=== PATIENT | female | born 1985 | race African-American/Black ===

== ENCOUNTER 2016-08-23 01:09 | Emergency (ER) | payer OTHER ==
[~2016-08-23] VITALS: Ht 175.3 cm; Wt 81.6 kg
[~2016-08-23 01:09] MED LIST: APIX2.5T PO; APIX5TAB PO; METO50TA10 PO; PHEN37.53 PO; RIVA10TA PO; SOTA80TA48 PO; VENTOLIN HFA18 GM IH; WARF-78 PO
[2016-08-23 01:15] VITALS: BP 108/72
[2016-08-23 01:45] LABS: BASO % 1 % (0-3); EOS % 2 % (0-3); HEMATOCRIT 31.9 % (36.0-47.0); LYMPH # 2.1 x10^3/uL (1.0-4.8); LYMPH % 32 % (24-48); MEAN CORPUSCULAR HEMOGLOBIN 25 pg (25-35); MEAN CORPUSCULAR HGB CONC 31 g/dL (31-37); MEAN CORPUSCULAR VOLUME 80 fL (79-100); MONO % 8 % (0-9); NEUT % 57 % (31-73); PLATELET COUNT 323 x10^3/uL (140-400); RED BLOOD COUNT 3.98 x10^6/uL (3.50-5.40); RED CELL DISTRIBUTION WIDTH 15.2 % (11.5-14.5); WHITE BLOOD COUNT 6.5 x10^3/uL (4.0-11.0)
[2016-08-23 01:59] LABS: CALCIUM 8.9 mg/dL (8.5-10.1); CREATININE 0.8 mg/dL (0.6-1.0); GFR 101.9
[2016-08-23] MEDS ORDERED: ASPIRIN CHEWABLE 81 MG TABLET. PO ONE (02:00)
--- NOTE | 2016-08-23 02:22 | PHYS DOC ---
Past Medical History Past Medical History: Asthma, DVT, Other Additional Past Medical Histor: Factor V Past Surgical History: Pacemaker, Tubal ligation Additional Past Surgical Histo: PACEMAKER W DIFIBRATOR Alcohol Use: None Drug Use: None Adult General Chief Complaint Chief Complaint: CHEST PAIN HPI HPI 31-year-old female presenting to the ER today with chest pain. Her chest pain is been present for more than a week. It is a sharp pain that is associated with lightheadedness when she stands up. She denies fevers chills or cough. She denies shortness of breath or abdominal pain. The pain is nonradiating. No alleviating or exacerbating factors present. She has a history of cardiac arrest and is status post an ICD placement. Review of systems is negative for shortness of breath abdominal pain nausea vomiting or diaphoresis. All other review of systems is negative unless otherwise noted in history of present illness. Pertinent physical exam findings showed soft nontender abdomen. Lungs were clear to auscultation bilaterally. Palpable pulse in all extremities. ED course: 31-year-old female presenting with chest pain. EKG unremarkable. Blood work obtained which was unremarkable including a negative d-dimer. Aspirin given. Patient feeling better on reexamination. heart score 1. wells score 1.5. The patient was then discharged home in stable condition to follow up with their primary care physician over the next 2-3 days. They were to return if their symptoms worsened or if they were concerned for any reason. Face -to-face discharge instructions and return precautions were given. Patient's questions were answered to their satisfaction. Patient is comfortable plan. Review of Systems Review of Systems SEE ABOVE. Current Medications Current Medications Current Medications Medications (Trade) Dose Ordered Sig/[facility] Start Time Stop Time Status Last Admin Dose Admin Aspirin (Children'S Aspirin) 324 mg 1X ONCE 08/23/16 02:00 08/23/16 02:01 MT Allergies Allergies Allergies Coded Allergies Type Severity Reaction Last Updated Verified No Known Drug Allergies 10/24/15 No Physical Exam Physical Exam Constitutional: Well developed, well nourished, no acute distress, non-toxic appearance. [] HENT: Normocephalic, atraumatic, bilateral external ears normal, oropharynx moist, no oral exudates, nose normal. [] Eyes: PERRLA, EOMI, conjunctiva normal, no discharge. [] Neck: Normal range of motion, no tenderness, supple, no stridor. Cardiovascular:Heart rate regular rhythm, no murmur Lungs & Thorax: Bilateral breath sounds clear to auscultation [] Abdomen: Bowel sounds normal, soft, no tenderness, no masses, no pulsatile masses. [] Skin: Warm, dry, no erythema, no rash. Back: No tenderness, no CVA tenderness. [] Extremities: No tenderness, no cyanosis, no clubbing, ROM intact, no edema. [] Neurologic: Alert and oriented X 3, normal motor function, normal sensory function, no focal deficits noted. [] Psychologic: Affect normal, judgement normal, mood normal. [] Current Patient Data Vital Signs Vital Signs Date Time Temp Pulse Resp B/P (MAP) Pulse Ox O2 Delivery O2 Flow Rate FiO2 08/23/16 01:15 98.4 83 20 108/72 (84) 100 Room Air 98.4 Lab Values Laboratory Tests Test 08/23/16 01:39 White Blood Count 6.5 x10^3/uL (4.0-11.0) Red Blood Count 3.98 x10^6/uL (3.50-5.40) Hemoglobin 10.0 g/dL (12.0-15.5) L Hematocrit 31.9 % (36.0-47.0) L Mean Corpuscular Volume 80 fL (79-100) Mean Corpuscular Hemoglobin 25 pg (25-35) Mean Corpuscular Hemoglobin Concent 31 g/dL (31-37) Red Cell Distribution Width 15.2 % (11.5-14.5) H Platelet Count 323 x10^3/uL (140-400) Neutrophils (%) (Auto) 57 % (31-73) Lymphocytes (%) (Auto) 32 % (24-48) Monocytes (%) (Auto) 8 % (0-9) Eosinophils (%) (Auto) 2 % (0-3) Basophils (%) (Auto) 1 % (0-3) Neutrophils # (Auto) 3.7 x10^3uL (1.8-7.7) Lymphocytes # (Auto) 2.1 x10^3/uL (1.0-4.8) Monocytes # (Auto) 0.5 x10^3/uL (0.0-1.1) Eosinophils # (Auto) 0.1 x10^3/uL (0.0-0.7) Basophils # (Auto) 0.0 x10^3/uL (0.0-0.2) D-Dimer (Yaritza) 0.48 ug/mlFEU (0.00-0.50) Sodium Level 141 mmol/L (136-145) Potassium Level 4.0 mmol/L (3.5-5.1) Chloride Level 104 mmol/L (98-107) Carbon Dioxide Level 31 mmol/L (21-32) Anion Gap 6 (6-14) Blood Urea Nitrogen 7 mg/dL (7-20) Creatinine 0.8 mg/dL (0.6-1.0) Estimated GFR (Cockcroft-Gault) 101.9 Glucose Level 89 mg/dL (70-99) Calcium Level 8.9 mg/dL (8.5-10.1) Troponin I Quantitative < 0.017 ng/mL (0.000-0.055) Lipase 104 U/L (73-393) Laboratory Tests 08/23/16 01:39 Laboratory Tests 08/23/16 01:39 EKG EKG EKG shows sinus rhythm with regular rate. Normal intervals. Normal axis. ST segments are congruent. Not suggestive of ACS. Reviewed by myself.[] Radiology/Procedures Radiology/Procedures []Chest x-ray reviewed by myself shows no obvious infiltrate or pneumothorax present. ICD noted. No obvious acute cardiopulmonary process present. Course & Med Decision Making Course & Med Decision Making Pertinent Labs and Imaging studies reviewed. (See chart for details) [] Dragon Disclaimer Dragon Disclaimer This electronic medical record was generated, in whole or in part, using a voice recognition dictation system. Departure Departure Impression: Primary Impression: Chest pain Disposition: 01 HOME, SELF-CARE Condition: STABLE Referrals: JANAE DE PAZ MD (PCP) Patient Instructions: Chest Pain (Nonspecific) Additional Instructions: Thank you for allowing us to participate in your care today. Followup with your primary care physician in 3 days if your symptoms do not improve. If you do not have a primary care provider you can ask for a list of our primary care providers. Return to the emergency department you have any new or concerning findings. This should be evaluated by the primary care physician and any necessary consulting services for continued management within a few days after discharge. Return to emergency room if you have any new or concerning symptoms including but not limited to fever, chills, nausea, vomiting, intractable pain, any new rashes, chest pain, shortness of air, uncontrolled bleeding, difficulty breathing, and/or vision loss. BERNARDO MORRIS MD Aug 23, 2016 02:22
--- NOTE | 2016-08-23 06:42 | EKG ---
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
--- NOTE | 2016-08-23 07:38 | RAD ---
Indication chest pain. A single view of the chest was obtained. Comparison is made to an examination 10/24/2015. Defibrillating and bipolar cardiac pacing device is noted. Heart size and pulmonary vessels are normal. The lungs are clear. There has not been a significant change compared to the previous exam. IMPRESSION: No acute or focal process. No significant change
== END 2016-08-23 02:39 | disposition home or self-care (01) ==
LOC: ER 01:09
DX: R07.9 Chest pain, unspecified (principal); J45.909 Unspecified asthma, uncomplicated; Z95.0 Presence of cardiac pacemaker; Z98.51 Tubal ligation status; Z86.718 Personal history of other venous thrombosis and embolism
CPT/HCPCS: 36415; 71010; 80048; 83690; 84484; 85027; 85379; 93005; 99285-25

== ENCOUNTER 2018-03-30 22:29 | Emergency (ER) | payer OTHER ==
[~2018-03-30 22:29] MED LIST changes: -METO50TA10 PO; +METO50TA29 PO
[2018-03-31 04:04] LABS: ALBUMIN 3.4 g/dL (3.4-5.0); ALBUMIN/GLOBULIN RATIO 0.9 (1.0-1.7); CALCIUM 8.9 mg/dL (8.5-10.1); CREATININE 0.8 mg/dL (0.6-1.0); GFR 101.2; POTASSIUM 3.9 mmol/L (3.5-5.1); TOTAL BILIRUBIN 0.2 mg/dL (0.2-1.0); TOTAL PROTEIN 7.4 g/dL (6.4-8.2)
[2018-03-31 04:05] LABS: HEMATOCRIT 34.4 % (36.0-47.0); HEMOGLOBIN 11.1 g/dL (12.0-15.5); LYMPH % 34 % (24-48); MEAN CORPUSCULAR HEMOGLOBIN 28 pg (25-35); MEAN CORPUSCULAR HGB CONC 32 g/dL (31-37); MEAN CORPUSCULAR VOLUME 86 fL (79-100); MONO % 8 % (0-9); NEUT % 55 % (31-73); PLATELET COUNT 244 x10^3/uL (140-400); RED BLOOD COUNT 4.02 x10^6/uL (3.50-5.40); RED CELL DISTRIBUTION WIDTH 13.2 % (11.5-14.5); WHITE BLOOD COUNT 5.8 x10^3/uL (4.0-11.0)
[2018-03-31 04:06] LABS: BASO % 1 % (0-3); EOS # 0.1 x10^3/uL (0.0-0.7); EOS % 3 % (0-3); MONO # 0.5 x10^3/uL (0.0-1.1); NEUT # 3.2 x10^3uL (1.8-7.7)
--- NOTE | 2018-03-31 08:05 | RAD ---
Portable chest, 03/30/2018: HISTORY: Chest pain Comparison is made to a study from 08/23/2016. A left-sided transvenous pacemaker remains in place with 2 leads extending into the right heart. The heart size and pulmonary vascularity are normal. No pulmonary infiltrate is seen. There is no evidence of pleural fluid. IMPRESSION: No acute cardiopulmonary abnormality is detected. Electronically signed by: Jose Alberto Joseph MD (03/31/2018 8:00 AM) [facility]
--- NOTE | 2018-03-31 10:30 | EKG ---
[facility] [address] [place] [address] Test Date: 2018-03-30 Test Time: 22:36:15 Pat Name: DARNELL BANERJEE Department: Room: Gender: F Hr Assistant: : 1985 Requested By: SUNNY SULLIVAN Order Number: [id number] Reading MD: Oscar Newsome MD Measurements Intervals [place] Rate: 74 P: [place]: QRS: 62 QRSD: 64 T: 31 QT: 364 QTc: 404 Interpretive Statements SINUS RHYTHM Electronically Signed On 03-31-2018 12:31:17 STUDENT FINANCIAL AID MANAGER by Oscar Newsome MD
== END 2018-03-30 23:50 | disposition home or self-care (01) ==
LOC: ER 22:29
DX: R07.89 Other chest pain (principal)
CPT/HCPCS: 36415; 71045; 80053; 84484; 85025; 93005; 99284-25

== ENCOUNTER 2021-02-01 13:45 | Observation (INO) | payer OTHER ==
[~2021-02-01] VITALS: Ht 175.3 cm; Wt 105.0 kg
[~2021-02-01 13:45] MED LIST changes: +ACET325T21 PO; +AMOX1TAB10 PO; +DOCU-148 PO; +LACT1CAP19 PO; +METO-239 PO; -WARF-78 PO; +WARF5TAB2 PO
[2021-02-01] MEDS ORDERED: ASPIRIN CHEWABLE 81 MG TABLET. PO ONE (14:00)
[2021-02-01] MEDS ORDERED: NITROGLYCERIN SUBLINGUAL 0.4 MG BOTTLE OF 25. SL PRN (14:00)
--- NOTE | 2021-02-01 14:23 | PHYS DOC ---
Past Medical History Past Medical History: A-Fib, Asthma, DVT, Other Additional Past Medical Histor: Factor V,CODED 29 TIMES (DUNCAN RICE APRN) Past Surgical History: Pacemaker, Tubal ligation, Other Additional Past Surgical Histo: PPM/AICD (DUNCAN RICE APRN) Smoking Status: Never Smoker Alcohol Use: Occasionally Drug Use: None (DUNCAN RICE APRN) General Adult EDM: Chief Complaint: CHEST PAIN HPI: HPI: Patient is a 35-year-old female who presents to the emergency department for midsternal chest pain that started 30 minutes prior to arrival. She describes the chest pain as a pressure and rates it 6 out of 10. She reports that the chest pain is relieved with rest and worse with movement. The pain does not radiate. Along with her chest pain she is experiencing lightheadedness. She is also reporting a generalized headache x1 week. She reports this is the worst headache she has ever had in her life and does not have a history of headaches. She denies any injuries, thunderclap headache, sore throat, nasal congestion or drainage, fevers, neck stiffness, cough, nausea, vomiting, shortness of breath. Patient has a history of DVT, factor V, defibrillator due to V. fib history and cardiac arrest. (DUNCAN RICE APRN) Review of Systems: Review of Systems: 14 body systems of the review of systems have been reviewed. See HPI for pertinent positive and negative responses, otherwise all other systems are negative, nonpertinent or noncontributory (DUNCAN RICE APRN) Heart Score: C/O Chest Pain: Yes HEART Score for Chest Pain: HEART Score for Chest Pain Response (Comments) Value History Slighlty/Non-Suspicious 0 ECG Normal 0 Age < 45 0 Risk Factors 1 or 2 Risk Factors 1 Troponin < Normal Limit 0 Total 1 Risk Factors: Risk Factors: DM, Current or recent (<one month) smoker, HTN, HLP, family history of CAD, obesity. Risk Scores: Score 0 - 3: 2.5% MACE over next 6 weeks - Discharge Home Score 4 - 6: 20.3% MACE over next 6 weeks - Admit for Clinical Observation Score 7 - 10: 72.7% MACE over next 6 weeks - Early Invasive Strategies (DUNCAN RICE APRN) Current Medications: Current Medications Medications (Trade) Dose Ordered Sig/Keri Start Time Stop Time Status Last Admin Dose Admin Aspirin (Aspirin Chewable) 324 mg 1X ONCE 02/01/21 14:00 02/01/21 14:01 DC 02/01/21 14:12 324 MG Nitroglycerin (Nitrostat) 0.4 mg PRN Q5MIN PRN 02/01/21 14:00 02/02/21 13:59 (DUNCAN RICE APRN) Allergies: Allergies: Allergies Coded Allergies Type Severity Reaction Last Updated Verified No Known Drug Allergies 10/24/15 No (DUNCAN RICE APRN) Physical Exam: PE: Constitutional: Well developed, well nourished, no acute distress, non-toxic appearance. [] HENT: Normocephalic, atraumatic, bilateral external ears normal, oropharynx moist, no oral exudates, nose normal. [] Eyes: PERRL, EOMI, conjunctiva normal, no discharge. [] Neck: Normal range of motion, no tenderness, supple, no nuchal rigidity, no stridor. [] Cardiovascular:Heart rate regular rhythm, no murmur [] Lungs & Thorax: Bilateral breath sounds clear to auscultation [] Abdomen: Bowel sounds normal, soft, no tenderness, no masses, no pulsatile masses. [] Skin: Warm, dry, no erythema, no rash. [] Back: Normal range of motion Extremities: No tenderness, no cyanosis, no clubbing, ROM intact, no edema. [] Neurologic: Alert and oriented X 3, normal motor function, normal sensory function, no focal deficits noted. [] Psychologic: Affect normal, judgement normal, mood normal. [] (DUNCAN RICE APRN) Current Patient Data: Labs: Laboratory Tests Test 02/01/21 15:00 02/01/21 15:44 Urine Collection Type Unknown Urine Color [place] Urine Clarity Cloudy Urine pH 7.5 Urine Specific [place] 1.015 Urine Protein Negative mg/dL Urine Glucose (UA) Negative mg/dL Urine Ketones (Stick) Negative mg/dL Urine Blood Large Urine Nitrite Negative Urine Bilirubin Negative Urine Urobilinogen Dipstick 1.0 mg/dL Urine Leukocyte Esterase Small Urine RBC Tntc /HPF Urine WBC 1-4 /HPF Urine Squamous Epithelial Cells Mod /LPF Urine Bacteria 0 /HPF Urine Test Negative White Blood Count 7.0 x10^3/uL Red Blood Count 4.32 x10^6/uL Hemoglobin 11.4 g/dL Hematocrit 36.1 % Mean Corpuscular Volume 84 fL Mean Corpuscular Hemoglobin 26 pg Mean Corpuscular Hemoglobin Concent 32 g/dL Red Cell Distribution Width 13.6 % Platelet Count 300 x10^3/uL Neutrophils (%) (Auto) 65 % Lymphocytes (%) (Auto) 26 % Monocytes (%) (Auto) 7 % Eosinophils (%) (Auto) 2 % Basophils (%) (Auto) 0 % Neutrophils # (Auto) 4.5 x10^3/uL Lymphocytes # (Auto) 1.8 x10^3/uL Monocytes # (Auto) 0.5 x10^3/uL Eosinophils # (Auto) 0.1 x10^3/uL Basophils # (Auto) 0.0 x10^3/uL Sodium Level 142 mmol/L Potassium Level 3.6 mmol/L Chloride Level 102 mmol/L Carbon Dioxide Level 29 mmol/L Anion Gap 11 Blood Urea Nitrogen 10 mg/dL Creatinine 0.7 mg/dL Estimated GFR (Cockcroft-Gault) 115.9 BUN/Creatinine Ratio 14 Glucose Level 106 mg/dL Calcium Level 8.5 mg/dL Total Bilirubin 0.2 mg/dL Aspartate Amino Transf (AST/SGOT) 14 U/L Alanine Aminotransferase (ALT/SGPT) 17 U/L Alkaline Phosphatase 93 U/L Troponin I High Sensitivity 5 ng/L Total Protein 7.6 g/dL Albumin 3.3 g/dL Albumin/Globulin Ratio 0.8 Current Medications Medications (Trade) Dose Ordered Sig/Keri Route PRN Reason Start Time Stop Time Status Last Admin Dose Admin Aspirin (Aspirin Chewable) 324 mg 1X ONCE PO 02/01/21 14:00 02/01/21 14:01 DC 02/01/21 14:12 Nitroglycerin (Nitrostat) 0.4 mg PRN Q5MIN PRN SL CP RATING > 03/2602/01/21 14:00 02/02/21 13:59 Fentanyl Citrate (Fentanyl 2ml Vial) 50 mcg 1X ONCE IVP 02/01/21 14:30 02/01/21 14:31 DC 02/01/21 15:56 Vital Signs: Vital Signs Date Time Temp Pulse Resp B/P (MAP) Pulse Ox O2 Delivery O2 Flow Rate FiO2 02/01/21 13:48 98.5 89 19 142/69 (93) 100 Room Air 98.5 (DUNCAN RICE APRN) EKG: EKG: [] EKG performed by ER staff at 1351 shows sinus rhythm with a heart rate of 89, QTc 417, no STEMI read by Dr. Trejo at 1437. (DUNCAN RICE APRN) Radiology/Procedures: Radiology/Procedures: []PROCEDURE: CT HEAD WO CONTRAST EXAM: Head CT without contrast. HISTORY: Headache. TECHNIQUE: Computed tomographic images of the head were obtained without intravenous contrast. COMPARISON: 07/22/2020. FINDINGS: There is no acute or subacute extra-axial or intraparenchymal hemorrhage. There is no mass effect or midline shift. There is no hydrocephalus. The alvarez-white matter differentiation pattern is intact. There are incidental bilateral lizett bullosa. The visualized orbits are unremarkable. The mastoid air cells are clear. 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 There is prominent adenoid soft tissue, likely reactive or due to hypertrophy. IMPRESSION: No acute intracranial findings. Electronically signed by: Ela Hargrove MD (02/01/2021 3:01 PM) [id number] DICTATED and SIGNED BY: ELA HARGROVE MD DATE: 02/01/21 [id number] PROCEDURE: PORTABLE CHEST 1V XR CHEST 1V History: Chest pain Comparison: 07/22/2020 Technique: Portable AP radiograph of the chest. Findings: Left chest dual-chamber pacemaker-defibrillator in unchanged position. No airspace consolidation, pleural effusion or pneumothorax. Cardiomediastinal silhouette and pulmonary vasculature are within normal limits. Osseous structures and soft tissues are unremarkable. Impression: 1. No acute cardiopulmonary process. Electronically signed by: Steven Wang MD (02/01/2021 3:21 PM) [id number] DICTATED and SIGNED BY: STEVEN WANG MD DATE: 02/01/21 [id number] (DUNCAN RICE APRN) Course & Med Decision Making: Course & Med Decision Making Pertinent Labs and Imaging studies reviewed. (See chart for details) Patient presents to the emergency department for headache and chest pain. Work- up in the ER consisted of blood work, EKG and chest x-ray. Patient be treated with aspirin and sublingual nitroglycerin as well as pain medication. Patient is also reporting a generalized headache x1 week. She denies any thunderclap headache. She has no meningeal signs. Imaging of her head was performed she did state this is the worst headache she has ever had in her life. Work-up in the ER was unremarkable. Patient did not have elevation in troponin or D-dimer. Her chest x-ray was unremarkable. Her heart score is 1 however due to her history of factor V, DVTs, and V. fib arrest and defibrillator placement and the fact that the chest pain started 30 minutes prior to arrival, I think it is appropriate to admit the patient for cardiac consultation and serial troponins. I discussed patient's findings with her and treatment plan and she is agreeable at this time. I discussed patient's findings with Dr. Lofton who agreed to admit the patient under his services for chest pain. ER bridge orders placed. Care transferred [id number]. (DUNCAN RICE APRN) Jose Angelon Disclaimer: tSacey Disclaimer: This electronic medical record was generated, in whole or in part, using a voice recognition dictation system. (DUNCAN RICE APRN) Departure Departure Impression: Primary Impression: Chest pain Qualified Codes: R07.9 - Chest pain, unspecified Disposition: ADMITTED INPATIENT Admitting Physician: JULIANE (DUNCAN RICE APRN) Condition: STABLE Referrals: UNKNOWN PCP NAME (PCP) DUNCAN RICE APRN Feb 01, 2021 14:23 KEENA TREJO MD Feb 02, 2021 07:33
--- NOTE | 2021-02-01 15:03 | RAD ---
EXAM: Head CT without contrast. HISTORY: Headache. TECHNIQUE: Computed tomographic images of the head were obtained without intravenous contrast. COMPARISON: 07/22/2020. FINDINGS: There is no acute or subacute extra-axial or intraparenchymal hemorrhage. There is no mass effect or midline shift. There is no hydrocephalus. The alvarez-white matter differentiation pattern is intact. There are incidental bilateral lizett bullosa. The visualized orbits are unremarkable. The ma stoid air cells are clear. 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 There is p rominent adenoid soft tissue, likely reactive or due to hypertrophy. IMPRESSION: No acute intracranial findings. Electronically signed by: Ela Sandy MD (02/01/2021 3:01 PM) [id number]
[2021-02-01 15:10] LABS: BILIRUBIN,URINE NEGATIVE (NEG); CLARITY,URINE CLOUDY; NITRITE,URINE NEGATIVE (NEG); PH,URINE 7.5 (<5.0-8.0); PROTEIN,URINE NEGATIVE (NEG-TRACE)
--- NOTE | 2021-02-01 15:16 | EKG ---
[facility] [address] [place] [address] Test Date: 2021-02-01 Test Time: 13:51:31 Pat Name: DARNELL BANERJEE Department: Room: Gender: F Client Administrator: : 1985 Requested By: DUNCAN RICE Order Number: [id number] Reading MD: Ray Rosen Measurements Intervals [place] Rate: 89 P: 42 CA: 164 QRS: 51 QRSD: 66 T: 42 QT: 342 QTc: 417 Interpretive Statements SINUS RHYTHM NORMAL ECG RI6.01 Compared to ECG 07/22/2020 03:26:45 No significant changes Electronically Signed On 02-04-2021 9:20:21 PINKED EDGE SEWING MACHINE OPERATOR by Ray Rosen
[2021-02-01 15:23] LABS: BACTERIA,URINE 0 /HPF (0-FEW); COLOR,URINE PINK; RBC,URINE TNTC /HPF (0-2)
--- NOTE | 2021-02-01 15:24 | RAD ---
XR CHEST 1V History: Chest pain Comparison: 07/22/2020 Technique: Portable AP radiograph of the chest. Findings: Left chest dual-chamber pacemaker-defibrillator in unchanged position. No airspace consolidation, ple ural effusion or pneumothorax. Cardiomediastinal silhouette and pulmonary vasculature are within norm al limits. Osseous structures and soft tissues are unremarkable. Impression: 1. No acute cardiopulmonary process. Electronically signed by: Steven De León MD (02/01/2021 3:21 PM) [id number]
[2021-02-01 15:26] LABS: U PREG PATIENT NEGATIVE (NEG)
[2021-02-01 15:53] LABS: BASO % 0 % (0-3); EOS # 0.1 x10^3/uL (0.0-0.7); EOS % 2 % (0-3); HEMATOCRIT 36.1 % (36.0-47.0); HEMOGLOBIN 11.4 g/dL (12.0-15.5); LYMPH # 1.8 x10^3/uL (1.0-4.8); LYMPH % 26 % (24-48); MEAN CORPUSCULAR HEMOGLOBIN 26 pg (25-35); MEAN CORPUSCULAR HGB CONC 32 g/dL (31-37); MEAN CORPUSCULAR VOLUME 84 fL (79-100); MONO # 0.5 x10^3/uL (0.0-1.1); MONO % 7 % (0-9); NEUT # 4.5 x10^3/uL (1.8-7.7); NEUT % 65 % (31-73); PLATELET COUNT 300 x10^3/uL (140-400); RED BLOOD COUNT 4.32 x10^6/uL (3.50-5.40); RED CELL DISTRIBUTION WIDTH 13.6 % (11.5-14.5)
[2021-02-01] MEDS: fentaNYL PF VIAL 100 MCG/2 ML VIAL IVP ONE ×2 (15:54→15:56)
[2021-02-01 16:01] LABS: CALCIUM 8.5 mg/dL (8.5-10.1); CREATININE 0.7 mg/dL (0.6-1.0); GFR 115.9; POTASSIUM 3.6 mmol/L (3.5-5.1)
[2021-02-01 16:06] LABS: ALBUMIN 3.3 g/dL (3.4-5.0); ALBUMIN/GLOBULIN RATIO 0.8 (1.0-1.7); TOTAL BILIRUBIN 0.2 mg/dL (0.2-1.0); TOTAL PROTEIN 7.6 g/dL (6.4-8.2)
[2021-02-01] MEDS ORDERED: ACETAMINOPHEN 325 MG TABLET. PO PRN (18:00)
[2021-02-01] MEDS ORDERED: ELECTROLYTE (NON-ICU) PROTOCOL. MC PRN (18:00)
[2021-02-01] MEDS ORDERED: oxyCODONE IR 5 MG TABLET PO PRN (18:00)
[2021-02-01] MEDS ORDERED: CALCIUM CARBONATE 500 MG TAB.CHEW PO PRN (18:00)
[2021-02-01] MEDS ORDERED: ZOLPIDEM 5 MG TABLET. PO PRN (18:00)
[2021-02-01] MEDS ORDERED: ONDANSETRON PF 4 MG/2 ML VIAL. IVP PRN (18:00)
[2021-02-01] MEDS ORDERED: MORPHINE SULFATE 2 MG/ML INJ. IV PRN ×2 (18:00)
[2021-02-01] MEDS: APIXABAN 5 MG TABLET. PO SCH (22:11)
[2021-02-01] MEDS: SENNOSIDES/DOCUSATE 8.6/50MG TABLET. PO SCH (22:11)
[2021-02-01 23:00] VITALS: BP 120/77
--- NOTE | 2021-02-01 23:00 | NUR ---
The patient, DARNELL BANERJEE, 35 y/o, F admitted by LANIE MARIE MD, was given written information regarding hospital policies, unit procedures and contact persons. Valuables were checked and documented. Call light in reach, will continue to monitor pt status and safety. pmrn
[2021-02-02 02:34] VITALS: BP_SYST 135; BP_SYST 150; BP_DIAS 65; BP_DIAS 69
[2021-02-02 05:24] LABS: BASO % 0 % (0-3); EOS # 0.2 x10^3/uL (0.0-0.7); EOS % 3 % (0-3); HEMOGLOBIN 11.3 g/dL (12.0-15.5); LYMPH % 31 % (24-48); MEAN CORPUSCULAR HEMOGLOBIN 26 pg (25-35); MEAN CORPUSCULAR HGB CONC 31 g/dL (31-37); MEAN CORPUSCULAR VOLUME 84 fL (79-100); MONO # 0.4 x10^3/uL (0.0-1.1); MONO % 6 % (0-9); NEUT # 3.8 x10^3/uL (1.8-7.7); NEUT % 60 % (31-73); PLATELET COUNT 273 x10^3/uL (140-400); RED CELL DISTRIBUTION WIDTH 13.3 % (11.5-14.5); WHITE BLOOD COUNT 6.3 x10^3/uL (4.0-11.0)
[2021-02-02 05:49] LABS: ALBUMIN/GLOBULIN RATIO 0.8 (1.0-1.7); CALCIUM 8.2 mg/dL (8.5-10.1); CREATININE 0.7 mg/dL (0.6-1.0); GFR 115.9; POTASSIUM 3.7 mmol/L (3.5-5.1); TOTAL BILIRUBIN 0.2 mg/dL (0.2-1.0); TOTAL PROTEIN 6.6 g/dL (6.4-8.2)
[2021-02-02 07:00] VITALS: BP 135/73
--- NOTE | 2021-02-02 08:07 | RAD ---
Bilateral lower extremity venous duplex study 02/02/2021 6:53 AM Clinical History: Reason: c/o pain left thigh, hx of dvts, hx of factor V Technique: Using a combination of real time ultrasound imaging and color-flow and pulse Doppler imagi ng techniques along with graded compression and augmentation, duplex evaluation of the deep venous sy stem of the both lower extremities was performed. Multiple images were obtained. Findings: There is no sonographic evidence of deep venous thrombosis involving the visualized deep ve nous structures of either lower extremity. Impression: No evidence of deep venous thrombosis involving either lower extremity Electronically signed by: Stephon Sloan MD (02/02/2021 8:04 AM) [id number]
--- NOTE | 2021-02-02 08:20 | PDOC2 ---
ZAYRA NARAYANAN TOBACCO DIPPER 02/02/21 0820: CARDIAC CONSULT DATE OF CONSULT Date of Consult DATE: 02/02/21 TIME: 08:16 REASON FOR CONSULT Reason for Consult: Chest pain, Hx of Vfib arrest REFERRING PHYSICIAN Referring Physician: Rolly SOURCE Source: Chart review, Patient HISTORY OF PRESENT ILLNESS HISTORY OF PRESENT ILLNESS This is a pleasant 35 yo female admitted for complains of COOPER and chest pain. Her chest pain is sharp in the middle not associated with palpitations, n/v and no SOA. Reports that her CP start n ED but had throbbing gloabl COOPER with some shooting discomfort to her neck but no visula or auditory disturbances nor stroke symptoms. She does have hx of NICM which she recovered and also migraine. She follow with Dr. Longoria at [facility] and was recnelty checked 1-2 months ago. She is vaccinated for covid-19 and no fever or chills. PAST MEDICAL HISTORY Cardiovascular: CHF, HTN, Other (palpitations, V-fib arrest, NICM) PAST SURGICAL HISTORY Past Surgical History: Pacemaker (AICD) FAMILY HISTORY Family History: Hypertension CURRENT MEDICATIONS CURRENT MEDICATIONS Current Medications Medications (Trade) Dose Ordered Sig/Keri Route PRN Reason Start Time Stop Time Status Last Admin Dose Admin Aspirin (Aspirin Chewable) 324 mg 1X ONCE PO 02/01/21 14:00 02/01/21 14:01 DC 02/01/21 14:12 Fentanyl Citrate (Fentanyl 2ml Vial) 50 mcg 1X ONCE IVP 02/01/21 14:30 02/01/21 14:31 DC 02/01/21 15:56 Apixaban (Eliquis) 5 mg BID PO 02/01/21 21:00 02/01/21 22:11 Senna/Docusate Sodium (Senna Plus) 1 tab BID PO 02/01/21 21:00 02/01/21 22:11 ALLERGIES ALLERGIES: Coded Allergies: No Known Drug Allergies (Unverified , 10/24/15) ROS Review of System 14 point ROS evaluated with pertinent positives noted per HPI PHYSICAL EXAM General: Alert, Oriented X3, Cooperative, No acute distress HEENT: Atraumatic, Mucous membr. moist/pink Lungs: Clear to auscultation, Normal air movement Heart: Regular rate (SR), Normal S1, Normal S2, No murmurs Abdomen: Soft, No tenderness Extremities: No cyanosis, No edema Skin: No breakdown, No significant lesion Neuro: Normal speech, Sensation intact Psych/Mental Status: Mental status NL, Mood NL MUSCULOSKELETAL: Full range of motion without pain VITALS/I&O VITALS/I&O: Vital Signs Date Time Temp Pulse Resp B/P (MAP) Pulse Ox O2 Delivery O2 Flow Rate FiO2 02/02/21 02:34 97.9 74 16 135/65 (88) 98 Room Air 97.9 I & O 02/01/21 02/01/21 02/02/21 15:00 23:00 07:00 Output Total 300 ml Balance -300 ml LABS Lab: Laboratory Tests Test 02/01/21 15:00 02/01/21 15:44 02/02/21 05:00 Urine Collection Type Unknown Urine Color [place] Urine Clarity Cloudy Urine pH 7.5 (<5.0-8.0) Urine Specific [place] 1.015 (1.000-1.030) Urine Protein Negative mg/dL (NEG-TRACE) Urine Glucose (UA) Negative mg/dL (NEG) Urine Ketones (Stick) Negative mg/dL (NEG) Urine Blood Large (NEG) Urine Nitrite Negative (NEG) Urine Bilirubin Negative (NEG) Urine Urobilinogen Dipstick 1.0 mg/dL (0.2 mg/dL) Urine Leukocyte Esterase Small (NEG) Urine RBC Tntc /HPF (0-2) Urine WBC 1-4 /HPF (0-4) Urine Squamous Epithelial Cells Mod /LPF Urine Bacteria 0 /HPF (0-FEW) Urine Test Negative (NEG) White Blood Count 7.0 x10^3/uL (4.0-11.0) 6.3 x10^3/uL (4.0-11.0) Red Blood Count 4.32 x10^6/uL (3.50-5.40) 4.30 x10^6/uL (3.50-5.40) Hemoglobin 11.4 g/dL (12.0-15.5) L 11.3 g/dL (12.0-15.5) L Hematocrit 36.1 % (36.0-47.0) 36.0 % (36.0-47.0) Mean Corpuscular Volume 84 fL (79-100) 84 fL (79-100) Mean Corpuscular Hemoglobin 26 pg (25-35) 26 pg (25-35) Mean Corpuscular Hemoglobin Concent 32 g/dL (31-37) 31 g/dL (31-37) Red Cell Distribution Width 13.6 % (11.5-14.5) 13.3 % (11.5-14.5) Platelet Count 300 x10^3/uL (140-400) 273 x10^3/uL (140-400) Neutrophils (%) (Auto) 65 % (31-73) 60 % (31-73) Lymphocytes (%) (Auto) 26 % (24-48) 31 % (24-48) Monocytes (%) (Auto) 7 % (0-9) 6 % (0-9) Eosinophils (%) (Auto) 2 % (0-3) 3 % (0-3) Basophils (%) (Auto) 0 % (0-3) 0 % (0-3) Neutrophils # (Auto) 4.5 x10^3/uL (1.8-7.7) 3.8 x10^3/uL (1.8-7.7) Lymphocytes # (Auto) 1.8 x10^3/uL (1.0-4.8) 2.0 x10^3/uL (1.0-4.8) Monocytes # (Auto) 0.5 x10^3/uL (0.0-1.1) 0.4 x10^3/uL (0.0-1.1) Eosinophils # (Auto) 0.1 x10^3/uL (0.0-0.7) 0.2 x10^3/uL (0.0-0.7) Basophils # (Auto) 0.0 x10^3/uL (0.0-0.2) 0.0 x10^3/uL (0.0-0.2) D-Dimer (Yaritza) 0.36 ug/mlFEU (0.00-0.50) Sodium Level 142 mmol/L (136-145) 142 mmol/L (136-145) Potassium Level 3.6 mmol/L (3.5-5.1) 3.7 mmol/L (3.5-5.1) Chloride Level 102 mmol/L (98-107) 104 mmol/L (98-107) Carbon Dioxide Level 29 mmol/L (21-32) 28 mmol/L (21-32) Anion Gap 11 (6-14) 10 (6-14) Blood Urea Nitrogen 10 mg/dL (7-20) 9 mg/dL (7-20) Creatinine 0.7 mg/dL (0.6-1.0) 0.7 mg/dL (0.6-1.0) Estimated GFR (Cockcroft-Gault) 115.9 115.9 BUN/Creatinine Ratio 14 (6-20) 13 (6-20) Glucose Level 106 mg/dL (70-99) H 86 mg/dL (70-99) Calcium Level 8.5 mg/dL (8.5-10.1) 8.2 mg/dL (8.5-10.1) L Total Bilirubin 0.2 mg/dL (0.2-1.0) 0.2 mg/dL (0.2-1.0) Aspartate Amino Transferase (AST) 14 U/L (15-37) L 13 U/L (15-37) L Alanine Aminotransferase (ALT) 17 U/L (14-59) 17 U/L (14-59) Alkaline Phosphatase 93 U/L (46-116) 86 U/L (46-116) Troponin I High Sensitivity 5 ng/L (4-50) 4 ng/L (4-50) Total Protein 7.6 g/dL (6.4-8.2) 6.6 g/dL (6.4-8.2) Albumin 3.3 g/dL (3.4-5.0) L 3.0 g/dL (3.4-5.0) L Albumin/Globulin Ratio 0.8 (1.0-1.7) L 0.8 (1.0-1.7) L Laboratory Tests 02/01/21 15:44 02/02/21 05:00 Laboratory Tests 02/01/21 15:44 02/02/21 05:00 ECHOCARDIOGRAM ECHOCARDIOGRAM <Conclusion> The left ventricle is normal size. The left ventricular systolic function is normal and the ejection fraction is within normal range. The Ejection Fraction is 60-65%. There is borderline concentric left ventricular hypertrophy. There is no significant aortic valvular stenosis. Doppler and Color Flow revealed no significant aortic regurgitation. Doppler and Color Flow revealed no mitral valve regurgitation noted. Doppler and Color Flow revealed trace tricuspid regurgitation. The PA pressure was estimated at 27 mmHg. There is no evidence of significant pericardial effusion. DATE: 02/16/15 1700 HEART CATH HEART CATH Findings: Coronaries: LM normal, LAD normal, Cx normal, RCA codominant and normal Ventriculogram: mildly dilated and hypokinetic. LV EF 30%, LVEDP 23 mmHg IMPRESSION Nonischemic cardiomyopathy S/P arrest probably secondary to dysrhythmias from the diet pills. At this time I cannot differentiate the reversible from the irreversible myocardial damage only time will tell. Await to see the neurological progression Pt taken back to CCU in stable hemodynamic condition DATE: 03/15/15 1714 ASSESSMENT/PLAN ASSESSMENT/PLAN 1. Atypical Chest pain trop nml no acute EKG changes. Noncardiac, possibly GI 2. of NICM: recovered per review 3. Hx of factor V leiden Def 4. COOPER with hx of Hx of Migraine per PCP 5. Hx of LLE DVT during 6. Hx of Vfib arrest remote 7. AICD in situ: medtronic. SR Recommendations 1. Trops nml no acute EKG changes. TTE today 2. Continue BB 3. Follow up with Dr. Swati ledezma DC today. MENDOZA PEDROZA MD 02/02/21 1304: CARDIAC CONSULT ASSESSMENT/PLAN ASSESSMENT/PLAN Patient seen and examined. Agree with BRIGHT CUTTER's assessment and plan. Chest pain with atypical features and currently resolved. Myocardial infarction has been ruled out. 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
[2021-02-02 08:59] LABS: CHOLESTEROL/HDL RATIO 3.3
[2021-02-02] MEDS ORDERED: METOPROLOL SUCC 24HR ER 25 MG TAB.ER.24H. PO SCH (09:00)
[2021-02-02] MEDS: APIXABAN 5 MG TABLET. PO SCH (09:01)
[2021-02-02] MEDS: SENNOSIDES/DOCUSATE 8.6/50MG TABLET. PO SCH (09:01)
[2021-02-02 10:47] VITALS: BP 126/67
--- NOTE | 2021-02-02 12:49 | HP ---
DATE OF SERVICE: 02/02/2021 ADMIT DATE: 02/01/2021 CHIEF COMPLAINT: Chest pain. HISTORY OF PRESENT ILLNESS: The patient is a pleasant DICTATION ENDS HERE DUKE/PAOLA DR: DUKE/petros TID: [id number]
--- NOTE | 2021-02-02 13:32 | SSS ---
DATE OF SERVICE: 02/02/2021 ADMIT DATE: 02/01/2021 CHIEF COMPLAINT: Chest pain. HISTORY OF PRESENT ILLNESS: The patient is a pleasant 35-year-old female with history of AFib and history of code blue and a permanent pacemaker and factor V Leiden mutation with chronic AFib. Basically, she presented last night with chest pain. We admitted overnight for observation. This morning, her labs are all still looking great. She wants to go home. We plan to discharge to home. PAST MEDICAL HISTORY: AFib, V-fib, cardiac arrest, code blue, permanent pacemaker, asthma, DVT, factor V Leiden mutation, tubal ligation. ALLERGIES: None. FAMILY HISTORY: Diabetes. SOCIAL HISTORY: She does not drink, smoke or take drugs. 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 MEDICATIONS: Reviewed, please refer to the MRAD. REVIEW OF SYSTEMS: GENERAL: No history of weight change, weakness or fevers. SKIN: No bruising, hair changes or rashes. EYES: No blurred, double or loss of vision. NOSE AND THROAT: No history of nosebleeds, hoarseness or sore throat. HEART: No history of palpitations, chest pain or shortness of breath on exertion. LUNGS: Denies cough, hemoptysis, wheezing or shortness of breath. GASTROINTESTINAL: Denies changes in appetite, nausea, vomiting, diarrhea or constipation. GENITOURINARY: No history of frequency, urgency, hesitancy or nocturia. NEUROLOGIC: Denies history of numbness, tingling, tremor or weakness. PSYCHIATRIC: No history of panic, anxiety or depression. ENDOCRINE: No history of heat or cold intolerance, polyuria or polydipsia. EXTREMITIES: Denies muscle weakness, joint pain, pain on walking or stiffness. PHYSICAL EXAMINATION: VITALS: Within normal limits and are stable. GENERAL: No apparent distress. Alert and oriented. HEENT: Normal cephalic atraumatic, external auditory canals are patent. Eyes: Extraocular muscles are intact, pupils are equally round and reactive to light and accommodation. MUSCULOSKELETAL: Well developed, well nourished, good range of motion. ENDOCRINE: No thyromegaly was palpated. LYMPHATICS: No cervical chain or axillary nodes were noted. HEMATOPOIETIC: No bruising. NECK: Supple, no JVD, no thyromegaly was noted. LUNGS: Clear to auscultation in all lung pal without rhonchi or wheezing. HEART: RRR, S1, S2 present. Peripheral pulses intact, no obvious murmurs were noted. ABDOMEN: Soft, nontender. Positive bowel sounds no organomegaly, normal bowel sounds. EXTREMITIES: Without any cyanosis, clubbing, or edema. Pedal pulses intact, Homans sign is negative. NEUROLOGIC: Normal speech, normal tone. A and O x 3, moves all extremities, no obvious focal deficits. PSYCHIATRIC: Normal affect, normal mood. Stable. SKIN: No ulcerations or rashes, good skin turgor, no jaundice. VASCULAR: Good capillary refill, neurovascular bundle appears to be intact. LABORATORY DATA: Troponins have all been basically 0, 5 and then 4. Electrolytes are normal. Hematology is normal other than a hemoglobin of 11.3. D-dimer slightly off at 0.36. Urinalysis, small amount of leukocyte esterase with 1-4 white cells. ASSESSMENT AND PLAN: Resolving atypical chest pain. Clinically, she looks great, wants to go home. We did consult Cardiology. They are okay with her going home and wants to have her see Dr. 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 DISPOSITION: Home. ACTIVITY: As tolerated. DIET: Low sodium. MEDICATIONS: Please see the MRAD. Albuterol, Eliquis 5 b.i.d., p.r.n. nitro, metoprolol XL 25 a day, p.r.n. Tylenol, docusate, Culturelle. TOTAL TIME: [address] minutes. DUKE/PAOLA DR: DUKE/petros TID: [id number]
--- NOTE | 2021-02-02 13:45 | NUR ---
Discharge Note: [facility] [address] Discharge instructions and discharge home medications reviewed with Patient and a copy given. All questions have been answered and understanding verbalized. The following instructions and handouts were given: hyponatremia, benzonatate, doxycycline, methylprednisolone, oxycodone. Patient discharged to home with home health via wheelchair. Addendum: 02/02/21 at 1437 by JOSE SCOTT RN RN Patient handed instructions for chest pain only, not other handouts
--- NOTE | 2021-02-02 18:20 | CARD ---
MR#: [id number] Date of Study: 02/02/2021 Ordering Physician: ZAYRA NARAYANAN, Referring Physician: ZAYRA NARAYANAN Tech: Kristen Mckeon [facility] APPROVED REPORT EXAM: Two-dimensional and M-mode echocardiogram with Doppler and color Doppler. Other Information Quality : AverageHR: 74bpm Rhythm : NSR INDICATION Chest Pain Surgery/Intervention ICD/Pacemaker: RISK FACTORS Hypertension 2D DIMENSIONS RVDd3.3 (2.9-3.5cm)Left Atrium(2D)3.4 (1.6-4.0cm) IVSd1.3 (0.7-1.1cm)Aortic Root(2D)3.3 (2.0-3.7cm) LVDd4.4 (3.9-5.9cm)LVOT Diameter2.5 (1.8-2.4cm) PWd1.0 (0.7-1.1cm)LVDs2.9 (2.5-4.0cm) FS (%) 35.0 %SV57.9 ml LVEF(%)64.4 (>50%) Aortic Valve AoV Peak Jordan.110.1cm/sAoV VTI25.0cm AO Peak GR.4.9mmHgLVOT VTI 20.70cm AO Mean GR.3mmHg Mitral Valve MV E Xccauxai89.3cm/sMV DECEL CDDD185ic MV A Tcvsxvfa18.3cm/sE/A Ratio1.5 TDI Lateral E' P. V15.00cm/sMedial E' P. V10.86cm/s E/Lateral E'5.2E/Medial E'7.1 Tricuspid Valve TR P. Djlxuayp455xz/sTR Peak Gr.18mmHg LEFT VENTRICLE The left ventricle is normal size. There is borderline concentric left ventricular hypertrophy. The l eft ventricular systolic function is normal and the ejection fraction is within normal range. Estimat ed ejection fraction 60%. There is normal LV segmental wall motion. The left ventricular diastolic fu nction and filling is normal for age. RIGHT VENTRICLE The right ventricle is normal size. There is normal right ventricular wall thickness. The right ventr icular systolic function is normal. There is a pacemaker lead in the RA/RV. ATRIA The left atrium size is normal. The right atrium size is normal. The interatrial septum is intact wit h no evidence for an atrial septal defect or patent foramen ovale as noted on 2-D or Doppler imaging. AORTIC VALVE The aortic valve is normal in structure and function. Doppler and Color Flow revealed no significant aortic regurgitation. There is no significant aortic valvular stenosis. MITRAL VALVE The mitral valve is normal in structure and function. There is no evidence of mitral valve prolapse. There is no mitral valve stenosis. Doppler and Color-flow revealed mild mitral regurgitation. TRICUSPID VALVE The tricuspid valve is normal in structure and function. Doppler and Color Flow revealed mild tricusp id regurgitation. PAP 25 mmHg. There is no tricuspid valve stenosis. PULMONIC VALVE Doppler and Color Flow revealed no pulmonic valvular regurgitation. There is no pulmonic valvular clau nosis. GREAT VESSELS The aortic root is normal in size. The ascending aorta is normal in size. The IVC is normal in size a nd collapses >50% with inspiration. PERICARDIAL EFFUSION There is no evidence of significant pericardial effusion. Critical Notification Critical Value: No <Conclusion> The left ventricular systolic function is normal and the ejection fraction is within normal range. E stimated ejection fraction 60%. There is normal LV segmental wall motion. There is a pacemaker lead in the RA/RV. Doppler and Color Flow revealed mild tricuspid regurgitation. PAP 25 mmHg. Signed by : Oscar Newsome, Electronically Approved : 02/02/2021 18:19:29
== END 2021-02-02 13:50 | disposition home or self-care (01) ==
LOC: ER 13:45 → ED HOLD 16:52 → 6 SOUTH 19:35
PROVIDERS: ADMIT Student in an Organized Health Care Education/Training Program; ATTEND Student in an Organized Health Care Education/Training Program
DX: R07.89 Other chest pain (principal); I48.91 Unspecified atrial fibrillation; I11.0 Hypertensive heart disease with heart failure; I50.9 Heart failure, unspecified; I48.20 Chronic atrial fibrillation, unspecified; I42.8 Other cardiomyopathies; D68.51 Activated protein C resistance; J45.909 Unspecified asthma, uncomplicated; R00.2 Palpitations; Z86.718 Personal history of other venous thrombosis and embolism; Z86.74 Personal history of sudden cardiac arrest; Z95.810 Presence of automatic (implantable) cardiac defibrillator; Z98.51 Tubal ligation status; Z79.82 Long term (current) use of aspirin; Z79.899 Other long term (current) drug therapy; Z98.890 Other specified postprocedural states
CPT/HCPCS: 36415; 70450; 71045; 80053; 80061; 81001; 81025; 84443; 84484; 85025; 85379; 87086; 93005; 93306; 93970; 96374; 99285; G0378; J3010; G0379

== ENCOUNTER 2021-03-29 02:07 | Emergency (ER) | payer OTHER ==
[~2021-03-29] VITALS: Ht 175.3 cm; Wt 105.0 kg
[2021-03-29 02:10] VITALS: BP 132/72
--- NOTE | 2021-03-29 02:11 | PHYS DOC ---
Past Medical History Past Medical History: A-Fib, Asthma, DVT, TIA, Other Additional Past Medical Histor: Factor V,CODED 29 TIMES Past Surgical History: Pacemaker, Tubal ligation, Other Additional Past Surgical Histo: PPM/AICD Smoking Status: Never Smoker Alcohol Use: Occasionally Drug Use: None General Adult EDM: Chief Complaint: SHORTNESS OF BREATH HPI: HPI: Patient is a 35 year old woman complaining of shortness of breath x 1 hour. Patient was diagnosed with COVID yesterday, CTA was preformed at [facility] ([facility]) and found to be negative. Patient woke up short of breath her symptoms get worse upon exertion and inspiration. Complains of pain in her left thigh, denies any other associating symptoms. Review of Systems: Review of Systems: Constitutional: Denies fever or chills Eyes: Denies redness or eye pain Respiratory: reports shortness of breath, denies cough Cardiovascular: Denies chest pain or palpitations GI: Denies abdominal pain, nausea, or vomiting : Denies dysuria or hematuria Musculoskeletal: reports pain in left thigh, denies back or joint pain Integument: Denies rash or skin lesions Neurologic: Denies headache, focal weakness or sensory changes Complete systems were reviewed and found to be within normal limits, except as documented in this note. Heart Score: C/O Chest Pain: N/A Allergies: Allergies: Allergies Coded Allergies Type Severity Reaction Last Updated Verified No Known Drug Allergies 10/24/15 No Physical Exam: PE: Constitutional: Well developed, well nourished, no acute distress, non-toxic appearance HENT: Normocephalic, atraumatic Eyes: conjunctiva normal, no discharge Neck: Normal range of motion, no tenderness Lungs & Thorax: No respiratory distress, equal chest rise and fall CTAB Cardiac: HRRR no murmur Abdomen: Soft, no tenderness Skin: Warm, dry, no erythema, no rash Back: No tenderness, no CVA tenderness Extremities: pain / tenderness left thigh, ROM intact, no edema Neurologic: Alert and oriented X 3, no focal deficits noted Psychologic: Affect normal, judgment normal EKG: EKG: [] Radiology/Procedures: Radiology/Procedures: PROCEDURE: VENOUS LOWER EXTREMITY LEFT US DPLX VENOUS EXTREMITY LOWER LT History: Reason: LLE pain, hx of DVT / Spl. Instructions: / History: Comparison: None. Technique: Multiple longitudinal and transverse high resolution real-time images of the venous system of left lower extremity were obtained with color and Doppler sampling. Findings: The common femoral, superficial femoral, popliteal and proximal calf veins are all patent and demonstrate normal flow and compressibility. Normal respiratory phasicity and augmentation is present. Impression: 1. No evidence of deep vein thrombosis. Electronically signed by: Marco Antonio Gamboa DO (03/29/2021 2:59 AM) [facility] Course & Med Decision Making: Course & Med Decision Making Pertinent Imaging studies reviewed. (See chart for details) Patient presented with shortness of breath after being diagnosed with COVID yesterday, CTA (-) at [facility] Patient placed on monitor, ultrasound ordered. Patient stable for discharge with outpatient follow-up with PCP. Discussed findings and plan with patient, who acknowledges understanding and agreement. COVID-19 CRITERIA: The patient was evaluated during the global COVID-19 pand emic, and that diagnosis was suspected/considered upon their initial presentation. Their evaluation, treatment and testing was consistent with current guidelines for patients who present with complaints or symptoms that may be related to COVID-19. Dragon Disclaimer: Voicendo Disclaimer: This electronic medical record was generated, in whole or in part, using a voice recognition dictation system. Departure Departure Impression: Primary Impression: Left leg pain Additional Impression: History of COVID-19 Disposition: 01 HOME / SELF CARE / HOMELESS Condition: STABLE Referrals: UNKNOWN PCP NAME (PCP) Patient Instructions: Viral Syndrome Additional Instructions: You have been tested for or diagnosed with COVID-19. It is an infection caused by a new type of coronavirus. COVID-19 will cause cold-like or mild flu symptoms in most. It can cause more severe symptoms like problems breathing in some. There is no treatment for COVID-19. The body will clear the infection over time. Self-care will help to ease discomfort. Steps to Take: Self-Care Rest as needed. Healthy habits may help you feel better. Steps include: Choose healthy foods including fruits and vegetables. Drink water throughout the day. Get plenty of sleep each night. If you smoke, try to quit. It may ease breathing. Avoid alcohol. Keep Others Healthy The virus can spread to others. Droplets are released every time you sneeze or cough. The droplets can get into the mouth, nose, or eyes of people near you and lead to infection. To lower the chances of spreading COVID-19 to others: Stay at home until your doctor has said it is safe to leave. If you tested positive this will mean staying isolated until both of the following are true: At least 7 days have passed since the start of illness. You are free of fever for at least 72 hours without the use of medicine. During this time: - Avoid public areas, events, or transportation. Do not return to work or school until your doctor has said it is safe to do so. - Call ahead if you need to go to a medical center. Let them know you may have COVID-19. It will help them guide you where to go. They may also ask you to wear a facemask when you come to the office. - If you call for emergency medical services, let them know you may have COVID- 19. While at home: - Try to avoid close contact with others. Stay about 6 feet away. - If possible, spend most of your time in a separate room from others. - Use a face mask if you will be in close contact with others such as sharing a room or vehicle. - Have someone wipe down common surfaces in the home. Use household senior cytogenetics laboratory director every day on areas like doorknobs, counters, or sinks. - Cough or sneeze into a tissue. Throw the tissue away right after use. If a tissue is not available, cough or sneeze into your elbow. - Wash your hands often. Wash them after sneezing or coughing. Use soap and water and wash for at least 20 seconds. Alcohol based hand cleaner greaser can be used if soap and water is not available. - Do not prepare food for others. Avoid sharing personal items like forks, spoons, or toothbrushes. - Avoid close contact with pets while you are sick. There is no evidence of the virus passing to pets. This is a safety step until more is known about this virus. Isolation can be frustrating. Social interaction can help. Keep in touch with friends and family through phone and tech options. You can still interact with others in yo ur home, just keep a safe distance of about 6 feet. Follow-up: Your doctors office will check in with you to see if there are any changes in your health. You may be asked to keep track of symptoms to share with them. They will also let you know when you are clear to be in public again. Problems to Look Out For: Contact your doctor if your recovery is not going as you expect. Get emergency care if you have problems such as: - Trouble breathing - Nonstop chest pain or pressure - Changes in awareness, confusion, or problems waking - Lips or face have bluish color - Worsening of symptoms If you think you have an emergency, call for emergency medical services right away. As taken from [facility] COVID-19 Assessment: COVID-19 Patient Risks: Age 65 or older: No Sign of co-morbidity: Yes Exp to person + for COVID: Yes Exp to PUI: No Travel from affected area: No Lower respiratory symptoms: Yes Fever: No Other: Yes PPE Use: Full PPE with N95 mask or PAPR: Yes STEFAN CRAWFORD DO Mar 29, 2021 02:11
--- NOTE | 2021-03-29 03:01 | RAD ---
US DPLX VENOUS EXTREMITY LOWER LT History: Reason: LLE pain, hx of DVT / Spl. Instructions: / History: Comparison: None. Technique: Multiple longitudinal and transverse high resolution real-time images of the venous system of left lower extremity were obtained with color and Doppler sampling. Findings: The common femoral, superficial femoral, popliteal and proximal calf veins are all patent and demonst rate normal flow and compressibility. Normal respiratory phasicity and augmentation is present. Impression: 1. No evidence of deep vein thrombosis. Electronically signed by: Marco Antonio Gamboa DO (03/29/2021 2:59 AM) [facility]
== END 2021-03-29 03:29 | disposition home or self-care (01) ==
LOC: ER 02:07
DX: M79.652 Pain in left thigh (principal); R06.02 Shortness of breath; J45.909 Unspecified asthma, uncomplicated; I48.91 Unspecified atrial fibrillation; Z86.718 Personal history of other venous thrombosis and embolism; Z86.73 Personal history of transient ischemic attack (TIA), and cerebral infarction without residual deficits; Z95.810 Presence of automatic (implantable) cardiac defibrillator
CPT/HCPCS: 93971; 99284

== ENCOUNTER 2021-04-03 19:12 | Emergency (ER) | payer OTHER ==
[~2021-04-03] VITALS: Ht 175.3 cm; Wt 90.0 kg
--- NOTE | 2021-04-03 19:24 | PHYS DOC ---
Past Medical History Past Medical History: A-Fib, Asthma, DVT, TIA, Other Additional Past Medical Histor: Factor V, hx of code blue, defribillator Past Surgical History: Pacemaker, Tubal ligation, Other Additional Past Surgical Histo: PPM/AICD Smoking Status: Never Smoker Alcohol Use: None Drug Use: None General Adult EDM: Chief Complaint: CHEST PAIN HPI: HPI: Patient is a 35 year old female here with midsternal chest pain as well as dyspnea. The pain is sharp, she does describe some pleuritic pain as well. She reports that the dyspnea is now resolved. Symptoms all began today. She admits that she is actually had many years of this exact same type of pain. She reports that she felt like her heart was racing and and felt a "abnormal heart rhythm." She denies dizziness, diaphoresis, nausea, vomiting, Gómez pain, lower extremity pain or swelling. She was recently diagnosed with COVID, s ymptoms beginning about 11 days ago. She had a positive test 7 days ago. She had been vaccinated but had not received a booster yet. She has a history of factor V Leiden, she is taking Eliquis, she reports compliance with this medication. She has an ICD, she reports having a history of atrial fibrillation. All of her cardiology care has been at [facility]. A little over a week ago, she had a negative CT angio of the chest at a freestanding [facility]. She was seen here on 03/29/2021 for similar symptoms. She was discharged home from the ER. She is tachycardic on arrival, though tachycardia is markedly improving within just a few minutes of being in the ED. She reports that she "always" has an elevated heart rate. Review of Systems: Review of Systems: Constitutional: Denies fever or chills. [] Eyes: Denies change in visual acuity. [] HENT: Over a week ago, she had mild nasal congestion and mild sore throat, the symptoms have now resolved Respiratory: Denies cough or hemoptysis. She does report dyspnea Cardiovascular: Reports sharp, substernal chest pain. Denies peripheral edema. Denies syncope GI: Denies abdominal pain, nausea, vomiting Musculoskeletal: Denies back pain or joint pain. [] Integument: Denies rash. [] Neurologic: Over a week ago, she had a headache, but this is now resolved. Denies dizziness, focal weakness or syncope. Psychiatric: Denies depression or anxiety. [] Heart Score: C/O Chest Pain: Yes HEART Score for Chest Pain: HEART Score for Chest Pain Response (Comments) Value History Slighlty/Non-Suspicious 0 ECG Nonspecific Repolarizatio 1 Age < 45 0 Risk Factors 1 or 2 Risk Factors 1 Troponin < Normal Limit 0 Total 2 Risk Factors: Risk Factors: DM, Current or recent (<one month) smoker, HTN, HLP, family history of CAD, obesity. Risk Scores: Score 0 - 3: 2.5% MACE over next 6 weeks - Discharge Home Score 4 - 6: 20.3% MACE over next 6 weeks - Admit for Clinical Observation Score 7 - 10: 72.7% MACE over next 6 weeks - Early Invasive Strategies Allergies: Allergies: Allergies Coded Allergies Type Severity Reaction Last Updated Verified No Known Drug Allergies 10/24/15 No Physical Exam: PE: Constitutional: Well developed, well nourished, no acute distress, non-toxic appearance. [] HENT: Normocephalic, atraumatic Eyes: Conjunctiva normal, no discharge. [] Neck: Normal range of motion, no tenderness, supple, no stridor. Trachea is midline. No JVD. Cardiovascular: Tachycardic, regular, +2 radial and +2 posterior tibial pulses bilaterally. Heart rate is in the low 100s and low 110s on my exam Lungs & Thorax: Bilateral breath sounds clear to auscultation, no rales, rhonchi or wheezes, no stridor, equal chest rise, no evidence of distress Abdomen: Abdomen is soft, nondistended, nontender to palpation Skin: Warm, dry, no erythema, no rash. [] Back: Full range of motion. Extremities: No tenderness, no cyanosis, no clubbing, ROM intact, no edema. No calf tenderness. Neurologic: Alert and oriented X 3, normal motor function, normal sensory function, no focal deficits noted. [] Psychologic: She is mildly anxious, she is cooperative EKG: EKG: EKG is interpreted at 1923 Rhythm is sinus tachycardia Rate is 120 bpm [place] is normal No STEMI Radiology/Procedures: Radiology/Procedures: IMAGING REPORT Signed PATIENT: DARNELL BANERJEE ACCOUNT: [id number] : 1985 LOCATION: ER AGE: 35 SEX: F EXAM STATUS: REG ER ORD. PHYSICIAN: KELSEY MATHIS DO REASON: dyspnea, chest pain, tachycardia PROCEDURE: CT ANGIOGRAPHY CHEST EXAMINATION: CT Pulmonary Angiogram with IV contrast INDICATION: Reason: dyspnea, chest pain, tachycardia / Spl. Instructions: [id number] 100ML [id number] / History: COMPARISON: Same-day chest radiograph TECHNIQUE: Using helical technique, CT data from the thoracic inlet through the upper abdomen was obtained during rapid IV contrast infusion. The examination was timed to the pulmonary arterial system to generate a CT angiographic study. 3D MIPS, sagittal and coronal reformats were generated. FINDINGS: Vascular: The study is diagnostic to the level of the segmental pulmonary arteries. Evaluation of the distal subsegmental pulmonary arteries is degraded secondary to respiratory motion. Pulmonary arteries: No evidence of acute or chronic pulmonary embolism. The pulmonary arteries are normal in size. Thoracic aorta: Normal in size with mild atherosclerotic disease. Coronary arteries: Normal origins. Mild calcified coronary atherosclerosis. Heart: The heart is normal in size. No pericardial effusion. Left chest cardiac pacing device with normal position of leads. Chest: Lungs/Pleura: The pulmonary parenchyma appears within normal limits. No suspicious pulmonary nodules are visualized. No pleural effusion or focal pleural lesion. Central airway is patent. Mediastinum: No pathologic mediastinal or hilar adenopathy there is a 6 mm hypoattenuating nodule in the right thyroid gland. No follow-up is indicated. Esophagus is unremarkable. Axilla/Soft Tissue: Beam hardening artifact from left chest cardiac generator device degrades evaluation of the left suprahilar region. No evidence of right or axillary adenopathy.. Regional soft tissues are within normal limits. Upper abdomen: Hypoattenuation of the hepatic parenchyma consistent with hepatic steatosis. No evidence of acute abnormality in the visualized upper abdomen. Bones: No evidence of acute fractures or aggressive osseous lesions. IMPRESSION: Vascular: 1. No evidence of pulmonary embolism to the level of the segmental pulmonary arteries. Chest: 1. No evidence of acute cardiopulmonary process. PRQS compliance statement - One or more of the following individualized dose reduction techniques were utilized for this study: 1. Automated exposure control 2. Adjustment of the mA and/or kV according to patient size 3. Use of iterative reconstruction technique Electronically signed by: Raymond Ortiz DO (04/03/2021 9:47 PM) [facility] DICTATED and SIGNED BY: RAYMOND ORTIZ DO DATE: 04/03/210 0 IMAGING REPORT Signed PATIENT: DARNELL BANERJEE ACCOUNT: [id number] : 1985 LOCATION: ER AGE: 35 SEX: F EXAM STATUS: REG ER ORD. PHYSICIAN: KELSEY MATHIS DO REASON: chest pain, dyspnea PROCEDURE: PORTABLE CHEST 1V EXAM: XR CHEST 1V 04/03/2021 7:56 PM CLINICAL INDICATION: Chest pain, dyspnea COMPARISON: Chest radiograph 02/01/2021 TECHNIQUE: AP upright view of the chest FINDINGS: There is a pacemaker/AICD. The heart and mediastinum are normal. Lungs are well-expanded and clear. No consolidation, pleural effusion, or pneumothorax. Pulmonary vascularity is normal. The thoracic skeleton is intact. IMPRESSION: No acute cardiopulmonary process. Electronically signed by: Geneva Ramos MD (04/03/2021 10:15 PM) [id number] DICTATED and SIGNED BY: GENEVA RAMOS MD DATE: 04/03/[id number] 0 Course & Med Decision Making: Course & Med Decision Making Pertinent Labs and Imaging studies reviewed. (See chart for details) I had ordered Toradol for the patient's pain. Her tachycardia is improving. Her vital signs are otherwise stable. She manifests no evidence of acute distress. Heart rate is in the 70s at time of disposition. CTA is negative for PE. Troponins negative. No acute ischemia on EKG. Her pain is relatively atypical. She admits to having this pain recurrently for many years. There is no current indication for further invasive exams, imaging or admission at this time based on current clinical presentation. I have discussed all of the findings, differential diagnosis and plan of care with her. I have recommended discharge home and outpatient follow-up with her urgent care technician at [facility], as well as follow-up with her primary care physician. She is comfortable with this plan of care, she verbalizes understanding of the strict return precautions provided. She is discharged in stable condition. Also, she requested a refill of her albuterol inhalers, because she is out. She does not have any refills on her current prescription. I sent a prescription for albuterol with 3 refills to her preferred pharmacy. Stacey Disclaimer: Stacey Disclaimer: This electronic medical record was generated, in whole or in part, using a voice recognition dictation system. Departure Departure Impression: Primary Impression: Atypical chest pain Disposition: HOME / SELF CARE / HOMELESS Condition: STABLE Referrals: UNKNOWN PCP NAME (PCP) Patient Instructions: Chest Pain (Nonspecific) Additional Instructions: Your work-up here is normal. You do not have any evidence of blood clot in your lungs on your CAT scan. Your laboratory exams are normal. Please follow-up with your primary care doctor and your urgent care technician at for further evaluation of your chest pain. Return for acute changes in pain, coughing up blood, more severe shortness of breath, if you have any refractory wheezing symptoms with your asthma, if you develop uncontrolled vomiting, dehydration, focal weakness, if you are acutely injured or for any other concerns. Scripts Albuterol Sulfate (VENTOLIN HFA INHALER) 18 Gm Hfa.aer.ad 2 PUFF INH Q4HRS for FOR ASTHMA, #1 EACH 3 Refills Prov: KELSEY MATHIS DO 04/03/21 KELSEY MATHIS DO Apr 03, 2021 19:24
[2021-04-03 19:43] LABS: BASO % 1 % (0-3); EOS # 0.2 x10^3/uL (0.0-0.7); EOS % 4 % (0-3); HEMATOCRIT 39.5 % (36.0-47.0); HEMOGLOBIN 12.6 g/dL (12.0-15.5); LYMPH # 1.6 x10^3/uL (1.0-4.8); LYMPH % 33 % (24-48); MEAN CORPUSCULAR HEMOGLOBIN 27 pg (25-35); MEAN CORPUSCULAR HGB CONC 32 g/dL (31-37); MEAN CORPUSCULAR VOLUME 84 fL (79-100); MONO # 0.4 x10^3/uL (0.0-1.1); MONO % 8 % (0-9); NEUT # 2.7 x10^3/uL (1.8-7.7); NEUT % 55 % (31-73); PLATELET COUNT 338 x10^3/uL (140-400); RED BLOOD COUNT 4.72 x10^6/uL (3.50-5.40); RED CELL DISTRIBUTION WIDTH 13.6 % (11.5-14.5); WHITE BLOOD COUNT 4.9 x10^3/uL (4.0-11.0)
[2021-04-03 19:59] LABS: CALCIUM 8.8 mg/dL (8.5-10.1); CREATININE 0.8 mg/dL (0.6-1.0); GFR 99.4; POTASSIUM 3.8 mmol/L (3.5-5.1)
[2021-04-03] MEDS ORDERED: IV NORMAL SALINE 1000ML BAG 1,000 ML IV ONE (20:00)
[2021-04-03] MEDS ORDERED: KETOROLAC 30 MG/ML VIAL. IVP ONE (20:00)
[2021-04-03 20:04] LABS: PREG TEST PT QUAL NEGATIVE (NEG)
[2021-04-03 20:05] LABS: ALBUMIN 3.8 g/dL (3.4-5.0); ALBUMIN/GLOBULIN RATIO 0.8 (1.0-1.7); TOTAL BILIRUBIN 0.3 mg/dL (0.2-1.0); TOTAL PROTEIN 8.4 g/dL (6.4-8.2)
[2021-04-03] MEDS ORDERED: CONTRAST GIVEN. MC PRN (20:45)
[2021-04-03] MEDS ORDERED: IOHEXOL 350 MG/ML 100 ML VIAL. IV ONE (21:00)
--- NOTE | 2021-04-03 21:49 | RAD ---
EXAMINATION: CT Pulmonary Angiogram with IV contrast INDICATION: Reason: dyspnea, chest pain, tachycardia / Spl. Instructions: [id number] 100ML [id number] / History: COMPARISON: Same-day chest radiograph TECHNIQUE: Using helical technique, CT data from the thoracic inlet through the upper abdomen was obt ained during rapid IV contrast infusion. The examination was timed to the pulmonary arterial system t o generate a CT angiographic study. 3D MIPS, sagittal and coronal reformats were generated. FINDINGS: Vascular: The study is diagnostic to the level of the segmental pulmonary arteries. Evaluation of the distal reyna bsegmental pulmonary arteries is degraded secondary to respiratory motion. Pulmonary arteries: No evidence of acute or chronic pulmonary embolism. The pulmonary arteries are no rmal in size. Thoracic aorta: Normal in size with mild atherosclerotic disease. Coronary arteries: Normal origins. Mild calcified coronary atherosclerosis. Heart: The heart is normal in size. No pericardial effusion. Left chest cardiac pacing device with no rmal position of leads. Chest: Lungs/Pleura: The pulmonary parenchyma appears within normal limits. No suspicious pulmonary nodules are visualized. No pleural effusion or focal pleural lesion. Central airway is patent. Mediastinum: No pathologic mediastinal or hilar adenopathy there is a 6 mm hypoattenuating nodule in the right thyroid gland. No follow-up is indicated. Esophagus is unremarkable. Axilla/Soft Tissue: Be am hardening artifact from left chest cardiac generator device degrades evaluation of the left suprah ilar region. No evidence of right or axillary adenopathy.. Regional soft tissues are within normal li mits. Upper abdomen: Hypoattenuation of the hepatic parenchyma consistent with hepatic steatosis. No eviden ce of acute abnormality in the visualized upper abdomen. Bones: No evidence of acute fractures or aggressive osseous lesions. IMPRESSION: Vascular: 1. No evidence of pulmonary embolism to the level of the segmental pulmonary arteries. Chest: 1. No evidence of acute cardiopulmonary process. PRQS compliance statement - One or more of the following individualized dose reduction techniques wer e utilized for this study: 1. Automated exposure control 2. Adjustment of the mA and/or kV according to patient size 3. Use of iterative reconstruction technique Electronically signed by: Brett Ortiz DO (04/03/2021 9:47 PM) [facility]
[2021-04-03 22:00] VITALS: BP 118/75
--- NOTE | 2021-04-03 22:17 | RAD ---
EXAM: XR CHEST 1V 04/03/2021 7:56 PM CLINICAL INDICATION: Chest pain, dyspnea COMPARISON: Chest radiograph 02/01/2021 TECHNIQUE: AP upright view of the chest FINDINGS: There is a pacemaker/AICD. The heart and mediastinum are normal. Lungs are well-expanded a nd clear. No consolidation, pleural effusion, or pneumothorax. Pulmonary vascularity is normal. Th e thoracic skeleton is intact. IMPRESSION: No acute cardiopulmonary process. Electronically signed by: Geneva Ramos MD (04/03/2021 10:15 PM) [id number]
[2021-04-03] MEDS ORDERED: VENTOLIN HFA18 GM INH (23:25)
--- NOTE | 2021-04-04 07:42 | EKG ---
[facility] [address] [place] [address] Test Date: 2021-04-03 Test Time: 19:21:44 Pat Name: DARNELL BANERJEE Department: Room: Gender: F Solution Lead: : 1985 Requested By: KELSEY MATHIS Order Number: [id number] Reading MD: Oscar Newsome MD Measurements Intervals [place] Rate: 120 P: 67 [place]: 142 QRS: 73 QRSD: 70 T: -31 QT: 286 QTc: 409 Interpretive Statements SINUS TACHYCARDIA LEFT ATRIAL ABNORMALITY T ABNORMALITY IN INFEROLATERAL LEADS ABNORMAL ECG Electronically Signed On 04-04-2021 20:41:24 ROOM CLEANER by Oscar Newsome MD
== END 2021-04-03 23:25 | disposition home or self-care (01) ==
LOC: ER 19:12
DX: R07.2 Precordial pain (principal); R06.00 Dyspnea, unspecified; J45.909 Unspecified asthma, uncomplicated; I48.91 Unspecified atrial fibrillation; Z86.718 Personal history of other venous thrombosis and embolism; Z86.73 Personal history of transient ischemic attack (TIA), and cerebral infarction without residual deficits; Z95.0 Presence of cardiac pacemaker
CPT/HCPCS: 36415; 71045; 71275; 80053; 83690; 83735; 83880; 84484; 84703; 85025; 93005; 96374; 99285; J1885; J7030; Q9967

== ENCOUNTER 2021-05-26 09:54 | Emergency (ER) | payer OTHER ==
[~2021-05-26] VITALS: Ht 175.3 cm; Wt 90.9 kg
[~2021-05-26 09:54] MED LIST changes: +VENTOLIN HFA18 GM INH
[2021-05-26] MEDS ORDERED: IV RINGERS,LACTATED 1000ML 1,000 ML IV SCH (10:15)
[2021-05-26] MEDS: ASPIRIN CHEWABLE 81 MG TABLET. PO ONE ×2 (10:15→10:25)
[2021-05-26] MEDS ORDERED: ASPIRIN ENTERIC COATED 81 MG TABLET.DR. PO ONE (10:21)
--- NOTE | 2021-05-26 10:30 | PHYS DOC ---
Past Medical History Past Medical History: A-Fib, Asthma, DVT, TIA, Other Additional Past Medical Histor: FACTOR 5 Past Surgical History: Pacemaker, Other Additional Past Surgical Histo: DEFIBRILATOR/AICD Smoking Status: Never Smoker Alcohol Use: Occasionally Drug Use: None General Adult EDM: Chief Complaint: CHEST PAIN HPI: HPI: Patient is a 35 year old female who presents here with report of palpitations and dizziness. Symptoms began around 0500 today. This occurred shortly after waking up. She denies syncope or near syncope. She denies diaphoresis. She describes lightheadedness when she states dizziness. No vertigo. She denies numbness or tingling or motor weakness. She reports some mild shortness of breath, denies chest pain. She has an AICD and pacemaker, this was placed many years ago. She has a history of cardiac arrest, history of factor V Leiden, history of DVT. No known history of PE, to her knowledge. She reports compliance with Eliquis. She has not felt any firing of her AICD. She denies lower extremity pain or swelling. She denies cough, hemoptysis, fevers or chills. She denies motor weakness. She has been seen by cardiology at [facility]. She has previously been seen for cardiology services here, but she mainly follows up with cardiology at . She has a [employer] I AICD/pacemaker. She is requesting that I contact them to have her device interrogated. She presented at the same time today with her mother who presented for a separate complaint as well. Review of Systems: Review of Systems: Constitutional: Denies fever or chills. [] HENT: Denies nasal congestion or sore throat. [] Respiratory: She denies cough or hemoptysis. She does report mild shortness of breath. Cardiovascular: Denies chest pain or peripheral edema. Denies syncope GI: Denies abdominal pain, nausea, or vomiting Musculoskeletal: Denies back pain or joint pain. [] Integument: Denies rash. [] Neurologic: Denies headache, focal weakness or sensory changes. He does report dizziness/lightheadedness. Denies syncope or near syncope Psychiatric: Mild anxiety as it pertains to current clinical condition. Heart Score: C/O Chest Pain: No HEART Score for Chest Pain: HEART Score for Chest Pain Response (Comments) Value History Slighlty/Non-Suspicious 0 ECG Normal 0 Age < 45 0 Total 0 Risk Factors: Risk Factors: DM, Current or recent (<one month) smoker, HTN, HLP, family history of CAD, obesity. Risk Scores: Score 0 - 3: 2.5% MACE over next 6 weeks - Discharge Home Score 4 - 6: 20.3% MACE over next 6 weeks - Admit for Clinical Observation Score 7 - 10: 72.7% MACE over next 6 weeks - Early Invasive Strategies Current Medications: Current Medications Medications (Trade) Dose Ordered Sig/Keri Start Time Stop Time Status Last Admin Dose Admin Aspirin (Aspirin Chewable) 324 mg 1X ONCE 05/26/21 10:15 05/26/21 10:21 DC 05/26/21 10:25 324 MG Aspirin (Ecotrin) 81 mg STK-MED ONCE 05/26/21 10:21 05/26/21 10:21 DC Ringer's Solution 1,000 ml @ 1,000 mls/hr Q1H 05/26/21 10:15 05/26/21 11:14 05/26/21 10:26 1,000 MLS/HR Allergies: Allergies: Allergies Coded Allergies Type Severity Reaction Last Updated Verified No Known Drug Allergies 10/24/15 No Physical Exam: PE: Constitutional: Well developed, well nourished, no acute distress, non-toxic appearance. [] HENT: Normocephalic, atraumatic Eyes: Sclera are clear and anicteric Neck: Normal range of motion, no tenderness, supple, no stridor. Achy midline. No JVD. Cardiovascular:Heart rate regular rhythm, was 2 radial +2 posterior tibial pulses bilaterally. No edema. No cyanosis. Warm and well-perfused. Lungs & Thorax: Lungs are clear to auscultation bilateral without rales, rhonchi, wheezes. No evidence of chest wall trauma or injury. Equal chest rise Abdomen: Abdomen is soft, nondistended, nontender to palpation. Normal bowel sounds. No palpable pulsatile mass. No CVA tenderness. No palpable mass organomegaly Skin: Warm, dry, no erythema, no rash. No cyanosis. Back: Full range of motion, no deformity Extremities: No tenderness, no cyanosis, no clubbing, ROM intact, no edema. No calf tenderness Neurologic: Alert and oriented X 3, normal motor function, normal sensory function, no focal deficits noted. [] Psychologic: Affect normal, judgement normal, mood normal. [] Current Patient Data: Vital Signs: Vital Signs Date Time Temp Pulse Resp B/P (MAP) Pulse Ox O2 Delivery O2 Flow Rate FiO2 05/26/21 09:54 98.1 83 17 126/79 (95) 100 Room Air 98.1 EKG: EKG: EKG is interpreted at 1009 Rhythm is sinus Rate is 85 bpm [place]ah is normal No STEMI some artifact leads III, aVL Radiology/Procedures: Radiology/Procedures: IMAGING REPORT Signed PATIENT: DARNELL BANERJEE ACCOUNT: [id number] : 1985 LOCATION: ER AGE: 35 SEX: F EXAM STATUS: PRE ER ORD. PHYSICIAN: ANABELL HARRY REASON: CHEST PAIN PROCEDURE: PORTABLE CHEST 1V EXAM: Chest, single view. HISTORY: Chest pain. COMPARISON: 04/03/2021 FINDINGS: A frontal view of the chest is obtained. There is no infiltrate, pleural effusion or pneumothorax. The heart is normal in size. There is a cardiac pacemaker defibrillator in expected position. IMPRESSION: No acute pulmonary finding. Electronically signed by: Ela Hargrove MD (05/26/2021 10:46 AM) [facility] DICTATED and SIGNED BY: ELA HARGROVE MD DATE: 05/26/21 [id number] 0 Course & Med Decision Making: Course & Med Decision Making Pertinent Labs and Imaging studies reviewed. (See chart for details) The patient is resting comfortably. She has had no chest pain here. Vital signs stable throughout her ED stay. Serial troponin are unremarkable, negative for acute cardiac ischemia. EKG is unremarkable. I contacted the [employer] loan representative, bedside AICD interrogation was performed, by me. Please see associated paperwork faxed from [employer] regarding absence of abnormalities. No ventricular arrhythmia noted. She has not felt her ICD fire. It appears to be working appropriately. I have discussed all of the findings, differential diagnosis and plan of care with her. She is comfortable with the plan for discharge home. I told her to contact her communications editor at [facility], as well as her primary care physician. Strict return precautions are given. She is comfortable with this plan of care. Stacey Disclaimer: Stacey Disclaimer: This electronic medical record was generated, in whole or in part, using a voice recognition dictation system. Departure Departure Impression: Primary Impression: Dizziness Additional Impressions: Palpitations Presence of implantable cardioverter-defibrillator (ICD) Anticoagulated Factor V Leiden Disposition: HOME / SELF CARE / HOMELESS Condition: STABLE Referrals: UNKNOWN PCP NAME (PCP) Patient Instructions: Dizziness, Palpitations Additional Instructions: Very wellPlease return to the ER for severe chest pain, more severe shortness of breath, passing out, focal weakness, uncontrolled vomiting, dehydration, severe abdominal pain or any other concerns. Your device was interrogated today, and everything looks as if it is. There is no evidence of any arrhythmia, no evidence of ventricular tachycardia or ventricular fibrillation, no shocks were administered, so your ICD and pacemaker appear to be working appropriately. Please contact your communications editor at [facility] for further evaluation. Also, continue taking all of your prescription medications as directed by your primary care doctor and your communications editor. KELSEY MATHIS DO May 26, 2021 10:30
--- NOTE | 2021-05-26 10:49 | RAD ---
EXAM: Chest, single view. HISTORY: Chest pain. COMPARISON: 04/03/2021 FINDINGS: A frontal view of the chest is obtained. There is no infiltrate, pleural effusion or pneumo thorax. The heart is normal in size. There is a cardiac pacemaker defibrillator in expected position. IMPRESSION: No acute pulmonary finding. Electronically signed by: Ela Sandy MD (05/26/2021 10:46 AM) [facility]
[2021-05-26 10:50] LABS: PROTHROMBIN TIME PATIENT 14.2 SEC (11.7-14.0)
[2021-05-26 11:01] LABS: D-DIMER 0.36 ug/mlFEU (0.00-0.50)
[2021-05-26 11:04] LABS: BASO % 1 % (0-3); EOS # 0.1 x10^3/uL (0.0-0.7); EOS % 3 % (0-3); HEMATOCRIT 36.7 % (36.0-47.0); HEMOGLOBIN 11.4 g/dL (12.0-15.5); LYMPH # 1.6 x10^3/uL (1.0-4.8); LYMPH % 35 % (24-48); MEAN CORPUSCULAR HEMOGLOBIN 26 pg (25-35); MEAN CORPUSCULAR HGB CONC 31 g/dL (31-37); MEAN CORPUSCULAR VOLUME 83 fL (79-100); MONO # 0.3 x10^3/uL (0.0-1.1); MONO % 6 % (0-9); NEUT # 2.5 x10^3/uL (1.8-7.7); NEUT % 55 % (31-73); PLATELET COUNT 294 x10^3/uL (140-400); RED BLOOD COUNT 4.43 x10^6/uL (3.50-5.40); RED CELL DISTRIBUTION WIDTH 13.8 % (11.5-14.5); WHITE BLOOD COUNT 4.6 x10^3/uL (4.0-11.0)
[2021-05-26 11:08] LABS: CALCIUM 8.9 mg/dL (8.5-10.1); CREATININE 0.9 mg/dL (0.6-1.0); GFR 86.7; POTASSIUM 4.5 mmol/L (3.5-5.1)
[2021-05-26 11:14] LABS: ALBUMIN 3.3 g/dL (3.4-5.0); ALBUMIN/GLOBULIN RATIO 0.7 (1.0-1.7); TOTAL BILIRUBIN 0.3 mg/dL (0.2-1.0); TOTAL PROTEIN 7.8 g/dL (6.4-8.2)
[2021-05-26 11:17] LABS: PREG TEST PT QUAL NEGATIVE (NEG)
[2021-05-26 12:02] LABS: BILIRUBIN,URINE NEGATIVE (NEG); CLARITY,URINE CLEAR; COLOR,URINE STRAW; NITRITE,URINE NEGATIVE (NEG); PH,URINE 8.5 (<5.0-8.0); PROTEIN,URINE NEGATIVE (NEG-TRACE); UROBILINOGEN,URINE 0.2 mg/dL (0.2 mg/dL)
[2021-05-26 12:04] LABS: BACTERIA,URINE 0 /HPF (0-FEW); RBC,URINE 0 /HPF (0-2); WBC,URINE OCC /HPF (0-4)
[2021-05-26 14:11] VITALS: BP 140/83
--- NOTE | 2021-05-26 21:12 | EKG ---
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
== END 2021-05-26 14:32 | disposition home or self-care (01) ==
LOC: ER 09:54
DX: R42 Dizziness and giddiness (principal); R00.2 Palpitations; I48.91 Unspecified atrial fibrillation; D68.51 Activated protein C resistance; J45.909 Unspecified asthma, uncomplicated; Z95.810 Presence of automatic (implantable) cardiac defibrillator; Z86.718 Personal history of other venous thrombosis and embolism; Z86.73 Personal history of transient ischemic attack (TIA), and cerebral infarction without residual deficits
CPT/HCPCS: 36415; 71045; 80053; 81001; 83735; 84484; 84703; 85025; 85379; 85610; 85730; 93005; 96360; 99285; J7120